=== PATIENT | female | born 1950 | race Caucasian/White ===

== ENCOUNTER 2017-04-20 22:40 | Observation (INO) | payer MEDICARE, OTHER ==
--- NOTE | ~2017-04-20 | HP ---
History And Physical [address] [id number] [place]. [address] NAME: TOMMY SHELTON : [birth year] STATUS : ADM Santos PAT#: [id number] AGE: 67 ADM/REG DATE : 04/20/17 MR#: [id number] REPORT SERV DATE: 04/21/17 DICTATED BY: MARY JANE SEAMAN DATE: 04/21/17 REPORT STATUS : Draft TRANSCRIBED BY: MODEyad DATE: 04/21/17 DATE OF ADMISSION: 04/20/2017 CONSTRUCTION REPRESENTATIVE: Previously, Reuben Toro, not seen in the greater than 15 years. CHIEF COMPLAINT: Atypical chest pain. HISTORY OF PRESENT ILLNESS: A very pleasant 67-year-old white female with known history of CAD, status post FL and stent placed to unknown vessel by Dr. Toro at [facility] in 1998 with no clear followup or subsequent evaluation since. On the April 20 around 2200 hours, the patient experienced a left-sided chest pain while at rest that did not radiate elsewhere. She describes it as a "steady little pain." She denies associated shortness of breath, nausea, diaphoresis, dizziness, or belching. At its most intense, she rated it a 2/10. At time of interview in the [facility], she is pain free. She states the episode lasted 40 minutes in duration. She has had previous twinges in the past that were transient in nature, but she was concerned about the duration of this discomfort so came to the emergency room for further evaluation. The patient confirms of her personal history of one heart attack in the past prior to her stent placement. Denies history of stroke, DVT, or pulmonary embolus. The patient denies any recent fever or chills. Describes rare palpitations. Consumes three to four cups of coffee per day. No syncopal episodes. Denies PND or orthopnea. PAST MEDICAL HISTORY: 1. CAD. a. Status post FL with stent to unknown vessel [place] [address] Toro at [facility]. 2. Hypertension. 3. Dyslipidemia. 4. Diabetes, diet controlled. 5. Arthritis. 6. Positive family history for early CAD. 7. Remote tobacco abuse. SURGICAL HISTORY: 1. Hysterectomy. 2. Tubal ligation. 3. Breast augmentation. 4. Cataract repair. 5. Appendectomy. 6. Cholecystectomy. 7. Repair of torn femoral artery, status post PCI in 1998. 8. Right ankle repair. SOCIAL HISTORY: She is with three children. 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 Does not have an exercise routine but is active. Quit smoking History And Physical [place] [place]. [address] NAME: TOMMY SHELTON : [birth year] STATUS : ADM Santos PAT#: [id number] AGE: 67 ADM/REG DATE : 04/20/17 MR#: [id number] REPORT SERV DATE: 04/21/17 DICTATED BY: MARY JANE SEAMAN DATE: 04/21/17 REPORT STATUS : Draft TRANSCRIBED BY: MODL DATE: 04/21/17 18 years ago. Denies alcohol or illicits. FAMILY HISTORY: Mother with diabetes, of a heart attack at 59. Father of cancer. Sister at 49 of a heart attack. Sister in her 40s of CHF. Sister three of a heart attack at 58. Brother of cancer. Sister four of CAD and COPD at the age of 68. REVIEW OF SYSTEMS: A 14-point review of systems performed, significant for HPI including home blood sugars of 150-170 and most recent hemoglobin A1c of 6.5 per report. Otherwise, complete review of systems obtained and negative. ALLERGIES: TO PENICILLIN, AGITATION. HOME MEDICATIONS: Xanax 0.25 mg daily p.r.n., Refresh drops p.r.n., aspirin 325 daily, Zyrtec 10 mg daily, CoQ10 daily, glucosamine chondroitin daily, lisinopril/HCTZ 10/12.5 daily, magnesium 500 mg daily, Mobic 15 mg daily, Visine drops p.r.n., pravastatin 40 mg daily. PHYSICAL EXAMINATION: VITAL SIGNS: Blood pressure 125/58, pulse 65, respirations 16, temperature 98.1, O2 saturation 97% on room air. Height 5 feet 0 inches, weight 134 pounds, BMI 26. GENERAL: Cooperative, in no apparent distress. HEENT: Pupils 2 mm, sclera nonicteric. Nares patent. Moist mucous membranes. No xanthelasma. NECK: Trachea midline, no thyromegaly. No JVD. No bruits. LYMPH: No cervical lymphadenopathy. No supraclavicular lymphadenopathy. RESPIRATORY: Unlabored respirations. Breath sounds clear bilaterally to posterior auscultation. No wheezes or rhonchi. CARDIOVASCULAR: Regular rate. No murmur, rub or gallop appreciated. Extremities without edema. Pulses 2+ bilaterally. ABDOMEN: Soft, nontender, nondistended, normal bowel sounds auscultated throughout. No organomegaly. SKIN: Warm, dry extremities. No pallor or cyanosis. PSYCHIATRIC: Appropriate affect. Alert, oriented x3. LABORATORY DATA: Troponin less than 0.02 x3. Potassium 4.0, BUN 16, creatinine 0.90, glucose 175, magnesium 2.1. WBC 6.3, hemoglobin 13.6, hematocrit 38.1, platelet count 218,000. EKG: Sinus rhythm, RSR prime. ASSESSMENT AND PLAN: 1. Chest pain. The patient has been observed in the CPOU overnight to rule out myocardial infarction. Three sets of cardiac markers negative. EKG appears stable. The patient has been held n.p.o. We will proceed with MPI today. The patient will be discharged home if low risk, no ischemia. If anything suggestive of ischemia, Cardiology referral will be initiated. Otherwise, the patient will be asked to follow up with her PCP in one to two weeks with all studies being sent to that office. History And Physical [address] [address] NAME: TOMMY SHELTON : [birth year] STATUS : ADM Santos PAT#: [id number] AGE: 67 ADM/REG DATE : 04/20/17 MR#: [id number] REPORT SERV DATE: 04/21/17 DICTATED BY: MARY JANE SEAMAN DATE: 04/21/17 REPORT STATUS : Draft TRANSCRIBED BY: JACQUELIN DATE: 04/21/17 2. Coronary artery disease, previous stent to unknown vessel. Continue home medications. Would recommend decreasing aspirin to 81 mg daily at discharge. 3. Hypertension. Monitor blood pressure and continue home medications. 4. Dyslipidemia. Continue statin. 5. Adult-onset diabetes mellitus, diet controlled. Reports recent hemoglobin A1c of 6.6 and home sugars of 150-170. JOSE/JACUQELIN ABDULAZIZ Alexander, ORTHOTICS TECHNICIAN- / [id number] CC: ABDULAZIZ Alexander, ORTHOTICS TECHNICIAN- Chidi Gaona M.D.
[~2017-04-20 22:40] MED LIST: ASA5GR PO; FISH-EPA1000 MG PO; FLAXSEED OIL1000 MG PO; MAGOX4 PO; NITROSTAT0.4 MG SL; PEPCID40 MG OR; PRAVACHOL40 MG PO; X5 PO; ZESTORETIC1 TAB PO; [UNRECOGNIZED DRUG - OTHER]
[2017-04-20 23:33] LABS: BASOPHILS 0.3 %; BASOPHILS ABSOLUTE 0.02 10/3/uL (0.0-0.16); EOSINOPHILS 1.6 %; ER CBC TAT 0 Hrs 11 Mins; HEMATOCRIT 38.1 % (36.0-48.0); HEMOGLOBIN 13.6 g/dL (12.0-16.0); IMMATURE GRANULOCYTES 0.5 %; IMMATURE GRANULOCYTES ABSOLUTE 0.03 10/3/uL (0.0-0.11); LYMPHOCYTES 53.1 %; LYMPHOCYTES ABSOLUTE 3.32 10/3/uL (0.67-4.30); MANUAL DIFF NO %; MEAN CORPUS HGB CONC 35.7 g/dL (32.0-36.0); MEAN CORPUSCULAR HEMOGLOB 33.4 pg (26.0-34.0); MEAN CORPUSCULAR VOLUME 93.6 fL (80-100); MEAN PLATELET VOLUME 11.1 fL (9.2-13.0); MONOCYTES 5.9 %; MONOCYTES ABSOLUTE 0.37 10/3/uL (0.21-1.20); NEUTROPHILS 38.6 %; NEUTROPHILS ABSOLUTE 2.41 10/3/uL (2.02-8.40); PLATELET COUNT 218 10/3/uL (150-400); RBC DISTRIBUTION WIDTH 12.9 % (12.0-16.0); RED CELL COUNT 4.07 10/6/uL (4.0-5.6); WHITE BLOOD CELLS 6.3 10/3/uL (4.5-10.5)
[2017-04-20 23:35] LABS: BUN (BLOOD UREA NITROGEN) 16 MG/DL (6-23); CALCIUM, SERUM 8.9 MG/DL (8.5-10.4); CHEST PAIN PROFILE TAT 0 Hrs 27 Mins; CHLORIDE, SERUM 105 MMOL/L (96-112); CO2 (CARBON DIOXIDE) 31 MMOL/L (24-34); GFR AFRICAN AMERICAN 76 ML/MIN (>=60); GFR NON AFRICAN AMERICAN 66 ML/MIN (>=60); SODIUM, SERUM 141 MMOL/L (135-148); TROPONIN I <0.02 NG/ML (<0.05)
[2017-04-20 23:36] LABS: GLUCOSE, SERUM 175 MG/DL (60-99)
[2017-04-20 23:41] LABS: PROTIME (NOT ORD) 12.8 SEC (12.0-14.5)
[2017-04-21] MEDS ORDERED: PRINZIDE1 TAB PO (00:33)
[2017-04-21] MEDS ORDERED: MOBIC15 MG PO (00:34)
[2017-04-21] MEDS ORDERED: PRAVACHOL40 MG PO (00:34)
[2017-04-21] MEDS ORDERED: ASAEC PO (00:34)
[2017-04-21] MEDS ORDERED: ZYRTEC ALLGY10 MG PO (00:35)
[2017-04-21] MEDS ORDERED: MAG OXIDE250 MG PO (00:35)
[2017-04-21] MEDS ORDERED: DURAFLEX PO (00:35)
[2017-04-21] MEDS ORDERED: X25 PO (00:36)
[2017-04-21] MEDS ORDERED: CO Q-10200 MG PO (00:36)
[2017-04-21] MEDS ORDERED: VISINE-A EYE AL15 ML OPH (00:38)
[2017-04-21] MEDS ORDERED: REFRESH OPH SO0.3 ML OPH (00:38)
[2017-04-21] MEDS ORDERED: ASAB PO (14:35)
[2017-04-21] MEDS ORDERED: NITROQUICK0.4 MG SL (14:36)
== END 2017-04-21 14:58 | disposition home or self-care (01) ==
LOC: ER 22:40 → CDU1 23:59 → CDU2 04-21 01:34
PROVIDERS: Hospitalist
DX: R07.9 Chest pain, unspecified (principal); I25.10 Atherosclerotic heart disease of native coronary artery without angina pectoris; I10 Essential (primary) hypertension; E11.8 Type 2 diabetes mellitus with unspecified complications; E78.5 Hyperlipidemia, unspecified; M19.90 Unspecified osteoarthritis, unspecified site; Z82.49 Family history of ischemic heart disease and other diseases of the circulatory system; Z87.891 Personal history of nicotine dependence; Z90.710 Acquired absence of both cervix and uterus; Z98.51 Tubal ligation status; Z90.49 Acquired absence of other specified parts of digestive tract; Z98.890 Other specified postprocedural states; Z83.3 Family history of diabetes mellitus; Z82.5 Family history of asthma and other chronic lower respiratory diseases; Z88.0 Allergy status to penicillin; Z79.82 Long term (current) use of aspirin; Z79.899 Other long term (current) drug therapy
CPT/HCPCS: 71020; 78452; 80048; 82962; 83735; 84484; 85025; 85610; 85730; 93005; 93017; 99285; A9270-GY; A9502; G0378